=== PATIENT | female | born 2000 | race Two or more races ===

== ENCOUNTER 2023-06-10 14:27 | Emergency (ER) | payer OTHER ==
[~2023-06-10] VITALS: Ht 175.3 cm; Wt 70.3 kg
[2023-06-10] MEDS ORDERED: PROAIR RESPICL90 MCG (15:35)
[2023-06-10] MEDS ORDERED: BUDESONIDE0.25 MG/1 (15:36)
[2023-06-10] MEDS ORDERED: ALBUTEROL SULFATE 3 ML/2.5 MG AMPUL.NEB IH STA (18:01)
[2023-06-10] MEDS ORDERED: METHYLPREDNISOLONE SOD SUCC 40 MG VIAL IM STA (18:02)
[2023-06-10] MEDS ORDERED: IPRATROPIUM BROMIDE 0.5 MG/2.5 ML AMPUL.NEB IH SCH (18:15)
[2023-06-10 18:51] LABS: HEMATOCRIT 40.1 % (36.0-45.00); HEMOGLOBIN 13.5 g/dL (12.0-15.00); MEAN CELL VOLUME 89.8 fL (80.00-100.00); MEAN CORPUSCULAR HEMOGLOBIN 30.2 pg (27.00-32.0); MEAN CORPUSCULAR HGB CONC 33.6 g/dl (32.0-36.0); PLATELET COUNT 308 K/uL (150-450); RED BLOOD COUNT 4.47 M/uL (4.00-6.00); RED CELL DISTRIBUTION WIDTH 13.9 % (11.5-14.5)
[2023-06-10 19:08] LABS: CALCIUM 9.2 mg/dL (8.5-10.1); CREATININE SERUM 0.75 mg/dL (0.55-1.02); GFR 95.76; POTASSIUM 3.72 mEq/L (3.5-5.1)
[2023-06-10] MEDS ORDERED: IPRATROPIUM/ALBUTEROL SULFATE 3 ML AMPUL.NEB IH ONE (19:30)
[2023-06-10] MEDS ORDERED: IPRATROPIUM/ALBUTEROL SULFATE 3 ML AMPUL.NEB IH SCH (20:15)
[2023-06-10] MEDS ORDERED: ZYRTEC10 MG PO (20:18)
[2023-06-10] MEDS ORDERED: MEDROLPACK PO (20:18)
[2023-06-10] MEDS ORDERED: SINGULAIR10 MG PO (20:18)
[2023-06-10] MEDS ORDERED: ALBUTEROL2.5 MG/3 M IH (20:18)
[2023-06-10] MEDS ORDERED: BUDESONIDE0.5 MG/2 M IH (20:18)
== END 2023-06-10 20:42 | disposition home or self-care (01) ==
LOC: ER 14:28
PROVIDERS: General Practice
DX: J45.901 Unspecified asthma with (acute) exacerbation (principal); R05.9 Cough, unspecified

== ENCOUNTER → 2023-09-29 | Emergency (ER) | payer OTHER ==
[~2023-09-29] MED LIST: ALBUTEROL2.5 MG/3 M IH; BUDESONIDE0.25 MG/1; BUDESONIDE0.5 MG/2 M IH; MEDROLPACK PO; PROAIR RESPICL90 MCG; SINGULAIR10 MG PO; ZYRTEC10 MG PO
== END | disposition left against medical advice (07) ==
LOC: ER 17:21
DX: Z53.21 Procedure and treatment not carried out due to patient leaving prior to being seen by health care provider (principal)

== ENCOUNTER 2023-09-30 07:10 | Emergency (ER) | payer OTHER ==
[~2023-09-30] VITALS: Ht 175.3 cm; Wt 72.6 kg
[2023-09-30] MEDS ORDERED: DEXAMETHASONE SODIUM PHOSPHATE 4 MG/ML VIAL IM STA (08:11)
== END 2023-09-30 11:16 | disposition home or self-care (01) ==
LOC: ER
DX: J45.909 Unspecified asthma, uncomplicated (principal)